=== PATIENT | female | born 1955 | race Hispanic/Latino ===

== ENCOUNTER 2019-10-11 10:51 | Emergency (ER) | payer MEDICARE ==
[~2019-10-11] VITALS: Ht 157.5 cm; Wt 95.3 kg
[2019-10-11] MEDS ORDERED: ASPIRIN 81 MG CHEW TAB PO ONE (11:00)
[2019-10-11 11:43] LABS: BASOPHILS % 0.6 % (0.0-1.0); EOSINOPHILS # (AUTO) 0.1 (0.0-0.4); EOSINOPHILS % 2.5 % (0.0-6.0); HEMATOCRIT 42.4 % (34.2-44.1); HEMOGLOBIN 13.7 g/dL (12.0-16.0); LYMPHOCYTES # (AUTO) 1.5 (1.0-3.2); LYMPHOCYTES % 29.3 % (18.0-39.1); MEAN CORPUSCULAR HEMOGLOBIN 28.1 pg (28-32); MEAN CORPUSCULAR HGB CONC 32.3 g/dL (31-35); MEAN CORPUSCULAR VOLUME 87.1 fL (81-99); MONOCYTES # (AUTO) 0.4 (0.2-0.8); MONOCYTES % 8.4 % (4.4-11.3); PLATELET COUNT 171 x10e3/uL (140-360); RED BLOOD COUNT 4.87 x10e6/uL (3.6-5.1); RED CELL DISTRIBUTION WIDTH 13.7 % (11.7-14.4)
[2019-10-11 12:05] LABS: CLARITY,URINE CLEAR (CLEAR); COLOR,URINE YELLOW (YELLOW); LEUKOCYTE ESTERASE ,URINE NEGATIVE (NEGATIVE); NITRITE,URINE NEGATIVE (NEGATIVE); PROTEIN,URINE DIPSTICK NEGATIVE (NEGATIVE)
[2019-10-11 12:06] LABS: BILIRUBIN,URINE NEGATIVE (NEGATIVE); KETONES,URINE NEGATIVE (NEGATIVE); URINE UROBILINOGEN 0.2 mg/dL (0.2 - 1)
[2019-10-11 12:07] LABS: BACTERIA,URINE RARE /HPF; EPITHELIAL CELLS,URINE FEW /LPF; RBC,URINE 0-5 /HPF (0-5); WBC,URINE (MAN) 0-5 /HPF (0-5)
[2019-10-11 12:13] LABS: ALANINE AMINOTRANSFERASE 27 IU/L (0-55); ALBUMIN/GLOBULIN RATIO 1.2 (0.8-2.0); ALKALINE PHOSPHATASE 100 IU/L (40-150); ANION GAP 12.7 mmol/L (8-16); BLOOD UREA NITROGEN 15 mg/dL (7-26); BUN/CREATININE RATIO 22 (6-25); CALCIUM 8.9 mg/dL (8.4-10.2); CARBON DIOXIDE 24 mmol/L (22-29); CHLORIDE 109 mmol/L (98-107); CREATINE KINASE 93 IU/L (29-168); CREATININE, SERUM 0.69 mg/dL (0.57-1.11); EST GLOMERULAR FILTRATION RATE > 60 ML/MIN (60-); GLUCOSE 110 mg/dL (74-118); MAGNESIUM 2.1 MG/DL (1.3-2.1); POTASSIUM 3.7 mmol/L (3.5-5.1); SODIUM 142 mmol/L (136-145)
--- NOTE | 2019-10-11 12:15 | Diagnostic Imaging Report ---
EXAMINATION: CHEST SINGLE (PORTABLE) INDICATION: Chest pain COMPARISON: None FINDINGS: LINES/TUBES:None LUNGS:The lungs are well-inflated. No focal consolidation or pulmonary edema. PLEURA:No pleural effusion or pneumothorax. MEDIASTINUM:The cardiomediastinal silhouette appears normal in size and shape. BONES/SOFT TISSUES:No acute osseous injury. ABDOMEN:No free air under the diaphragm. IMPRESSION: No focal pneumonia or pulmonary edema. Signed by: Servando Aguero MD on 10/11/2019 12:11 PM
[2019-10-11 12:20] LABS: INR 0.86; PROTHROMBIN TIME 12.2 seconds (11.9-14.5)
--- NOTE | 2019-10-11 12:42 | Emergency Department Note ---
History of Present Illnes History of Present Illness Chief Complaint: General Medicine Complaints History of Present Illness This is a 64 year old female PATIENT IN FROM HOME WITH COMPLAINTS OF LEFT ARM PAIN AND HAND TINGLING X 2 DAYS; PATIENT STATED IT STARTS IN HER CHEST AND RADIATES INTO HER LEFT ARM, LASTING ABOUT A MINUTE PER EPISODE. DENIES ANY FALL OR INJURY, RATES PAIN 7/10. Historian: Patient Arrival Mode: Car Construction Stonemason Required: No Onset (how long ago): day(s) (2) Location: LEFT CHEST Quality: SHARP PAIN LASTING ~1 MIN Radiation: Reports extremity (LEFT ARM) Severity: moderate Onset quality: gradual Timing of current episode: intermittent Chronicity: new Context: Denies recent illness Relieving factors: none Exacerbating factors: none Associated symptoms: Reports denies other symptoms Treatments prior to arrival: none Past Medical/Family History Physician Review I have reviewed the patient's past medical and family history. Any updates have been documented here. Past Medical History Recent Fever: No Clinical Suspicion of Infectio: No New/Unexplained Change in Ment: No Past Medical History: None Past Surgical History: Tubal Ligation Social History Smoking Cessation: Never Smoker Counseling Performed: No Alcohol Use: None Any Illegal Drug Use: No TB Exposure/Symptoms: No Physically hurt or threatened: No Family History Family history of heart diseas: No Review of Systems Review of Systems Constitutional: Reports no symptoms EENTM: Reports no symptoms Cardiovascular: Reports as per HPI Respiratory: Reports no symptoms Gastrointestinal: Reports no symptoms Genitourinary: Reports no symptoms Musculoskeletal: Reports no symptoms Integumentary: Reports no symptoms Neurological: Reports no symptoms Psychological: Reports no symptoms Endocrine: Reports no symptoms Hematological/Lymphatic: Reports no symptoms Physical Exam Related Data Allergies: Coded Allergies: No Known Allergies (Unverified , 10/11/19) Triage Vital Signs Vital Signs Date Time Temp Pulse Resp B/P (MAP) Pulse Ox O2 Delivery O2 Flow Rate FiO2 10/11/19 10:53 98.0 81 18 159/86 100 Room Air Vital signs reviewed: Yes Physical Exam CONSTITUTIONAL Constitutional: Present well-developed, Present well-nourished HENT HENT: Present normocephalic, Present atraumatic, Present oropharynx clear/moist, Present nose normal HENT L/R: Present left ext ear normal, Present right ext ear normal EYES Eyes: Reports PERRL, Reports conjunctivae normal NECK Neck: Present ROM normal PULMONARY Pulmonary: Present effort normal, Present breath sounds normal CARDIOVASCULAR Cardiovascular: Present regular rhythm, Present heart sounds normal, Present capillary refill normal, Present normal rate, Present LLE edema (2+), Present RLE edema (2+) GASTROINTESTINAL Abdominal: Present soft, Present nontender, Present bowel sounds normal GENITOURINARY Genitourinary: Present exam deferred SKIN Skin: Present warm, Present dry MUSCULOSKELETAL Musculoskeletal: Present ROM normal NEUROLOGICAL Neurological: Present alert, Present oriented x 3, Present no gross motor or sensory deficits PSYCHOLOGICAL Psychological: Present mood/affect normal, Present judgement normal Results Laboratory Result Diagram: 10/11/19 1114 10/11/19 1114 Laboratory Laboratory Tests Test 10/11/19 11:14 White Blood Count 5.12 x10e3/uL (4.8-10.8) Red Blood Count 4.87 x10e6/uL (3.6-5.1) Hemoglobin 13.7 g/dL (12.0-16.0) Hematocrit 42.4 % (34.2-44.1) Mean Corpuscular Volume 87.1 fL (81-99) Mean Corpuscular Hemoglobin 28.1 pg (28-32) Mean Corpuscular Hemoglobin Concent 32.3 g/dL (31-35) Red Cell Distribution Width 13.7 % (11.7-14.4) Platelet Count 171 x10e3/uL (140-360) Neutrophils (%) (Auto) 59.0 % (38.7-80.0) Lymphocytes (%) (Auto) 29.3 % (18.0-39.1) Monocytes (%) (Auto) 8.4 % (4.4-11.3) Eosinophils (%) (Auto) 2.5 % (0.0-6.0) Basophils (%) (Auto) 0.6 % (0.0-1.0) Neutrophils # (Auto) 3.0 (2.1-6.9) Lymphocytes # (Auto) 1.5 (1.0-3.2) Monocytes # (Auto) 0.4 (0.2-0.8) Eosinophils # (Auto) 0.1 (0.0-0.4) Basophils # (Auto) 0.0 (0.0-0.1) Absolute Immature Granulocyte (auto 0.01 x10e3/uL (0-0.1) Prothrombin Time 12.2 seconds (11.9-14.5) Prothromb Time International Ratio 0.86 Activated Partial Thromboplast Time 25.0 seconds (23.8-35.5) Urine Color Yellow (YELLOW) Urine Clarity Clear (CLEAR) Urine pH 6.5 (5 - 7) Urine Specific [place] 1.020 (1.010-1.025) Urine Protein Negative (NEGATIVE) Urine Glucose (UA) Negative (NEGATIVE) Urine Ketones Negative (NEGATIVE) Urine Blood Trace (NEGATIVE) Urine Nitrite Negative (NEGATIVE) Urine Bilirubin Negative (NEGATIVE) Urine Urobilinogen 0.2 mg/dL (0.2 - 1) Urine Leukocyte Esterase Negative (NEGATIVE) Urine RBC 0-5 /HPF (0-5) Urine WBC 0-5 /HPF (0-5) Urine Epithelial Cells Few /LPF (NONE) Urine Bacteria Rare /HPF (NONE) Sodium Level 142 mmol/L (136-145) Potassium Level 3.7 mmol/L (3.5-5.1) Chloride Level 109 mmol/L (98-107) Carbon Dioxide Level 24 mmol/L (22-29) Anion Gap 12.7 mmol/L (8-16) Blood Urea Nitrogen 15 mg/dL (7-26) Creatinine 0.69 mg/dL (0.57-1.11) Estimat Glomerular Filtration Rate > 60 ML/MIN (60-) BUN/Creatinine Ratio 22 (6-25) Glucose Level 110 mg/dL (74-118) Calcium Level 8.9 mg/dL (8.4-10.2) Magnesium Level 2.1 MG/DL (1.3-2.1) Total Bilirubin 0.5 mg/dL (0.2-1.2) Aspartate Amino Transf (AST/SGOT) 20 IU/L (5-34) Alanine Aminotransferase (ALT/SGPT) 27 IU/L (0-55) Alkaline Phosphatase 100 IU/L (40-150) Creatine Kinase 93 IU/L (29-168) Creatine Kinase MB 2.20 ng/mL (0-5.0) Troponin I 0.007 ng/mL (0-0.300) B-Type Natriuretic Peptide 72.7 pg/mL (0-100) Total Protein 7.4 g/dL (6.5-8.1) Albumin 4.0 g/dL (3.5-5.0) Globulin 3.4 g/dL (2.3-3.5) Albumin/Globulin Ratio 1.2 (0.8-2.0) Lab results reviewed: Yes Imaging Imaging results reviewed: Yes Impressions EXAMINATION: CHEST SINGLE (PORTABLE) INDICATION: Chest pain COMPARISON: None FINDINGS: LINES/TUBES:None LUNGS:The lungs are well-inflated. No focal consolidation or pulmonary edema. PLEURA:No pleural effusion or pneumothorax. MEDIASTINUM:The cardiomediastinal silhouette appears normal in size and shape. BONES/SOFT TISSUES:No acute osseous injury. ABDOMEN:No free air under the diaphragm. IMPRESSION: No focal pneumonia or pulmonary edema. Signed by: Servando Aguero MD on 10/11/2019 12:11 PM Procedures 12 Lead ECG Interpretation ECG Interpretation : ECG: ECG 1 Construction Stonemason: Interpreted by ED physician Date: Oct 11, 2019 Time: 11:06 Rhythm: sinus rhythm (FREQ PVC'S) Rate: normal (80) QRS axis: left ST segments normal: Yes T waves normal: Yes Clinical Impression: abnormal ECG Assessment & Plan Medical Decision Making MDM CBC, CHEM, CARDIACS, ECG, CXR - R/O STEMI/NSTEMI, PNEUMONIA, ELECTROLYTE ABNL, RENAL INSUFF Reassessment Reassessment DC HOME, F/U PCP AND SADE, ASA 81 MG PO QDAY Assessment & Plan Final Impression: (1) Chest pain Depart Disposition: HOME, SELF-CARE Last Vital Signs Date Time Temp Pulse Resp B/P (MAP) Pulse Ox O2 Delivery O2 Flow Rate FiO2 10/11/19 10:53 98.0 81 18 159/86 100 Room Air Medications in the ED Aspirin 81 mg NOW ONCE PO Last administered on 10/11/19at 12:03; Admin Dose 81 MG; Start 10/11/19 at 11:00; Stop 10/11/19 at 11:22; Status DC PASCUAL FARR MD Oct 11, 2019 12:42
[2019-10-11 14:12] LABS: CREATINE KINASE 92 IU/L (29-168)
[2019-10-11 14:48] VITALS: BP 143/85
== END 2019-10-11 15:05 | disposition home or self-care (01) ==
LOC: ER 11:12
DX: R07.9 Chest pain, unspecified (principal); R94.31 Abnormal electrocardiogram [ECG] [EKG]
CPT/HCPCS: 36415; 71045; 80053; 81001; 82550; 82553; 83735; 83880; 84484; 85025; 85610; 85730; 87086; 93005; 99284